=== PATIENT | male | born 1955 | race Caucasian/White ===

== ENCOUNTER 2021-05-17 06:11 | Outpatient (REF) | payer MEDICARE, BC, SELFPAY ==
[2021-05-17 07:16] LABS: Estimated Average Glucose 114 mg/dL; Hemoglobin A1c % 5.6 %
== END 2021-05-17 06:12 | disposition home or self-care (01) ==
LOC: HO.LAB 06:11
PROVIDERS: PCP Internal Medicine; Visit Provider Physician Assistant
DX: R73.01 Impaired fasting glucose (principal)
CPT/HCPCS: 36415; 83036

== ENCOUNTER 2022-03-29 06:22 | Outpatient (REF) | payer BC, MEDICARE, SELFPAY ==
[2022-03-29 08:06] LABS: TSH reflex Free T4 2.13 uIU/mL (0.32-4.0)
[2022-04-02 16:56] LABS: Testosterone, Free 85.5 pg/mL (35.0-155.0); Testosterone, Total 757 ng/dL (250-1100)
== END 2022-03-29 06:23 | disposition home or self-care (01) ==
LOC: HO.LAB 06:22
PROVIDERS: PCP Internal Medicine; Visit Provider Physician Assistant
DX: E03.8 Other specified hypothyroidism (principal); N52.8 Other male erectile dysfunction
CPT/HCPCS: 36415; 84402; 84403; 84443

== ENCOUNTER 2022-10-19 06:04 | Outpatient (REF) | payer BC, MEDICARE, SELFPAY ==
[2022-10-19 06:10] LABS: MANUAL DIFF FLAG NO
[2022-10-19 07:43] LABS: Basophils Absolute Auto 0.1 X10*3/uL (0.0-0.2); Basophils Percent Auto 0.7 % (0-2); Eosinophils Absolute Auto 0.3 X10*3/uL (0.0-0.4); Eosinophils Percent Auto 3.4 % (0-4); Hematocrit 42.4 % (42.0-52.0); Hemoglobin 14.4 g/dl (14.0-18.0); Imm Gran Abs Auto 0.02 X10*3/uL (0.00-0.03); Imm Gran Pct Auto 0.2 % (0.0-0.4); Lymphocytes Absolute Auto 2.1 X10*3/uL (1.2-4.9); Mean Corpuscular Hemoglobin 28.7 pg (27.0-33.0); Mean Corpuscular Volume 84.6 fL (80.0-98.0); Mean Platelet Volume 12.1 fL (9.4-12.4); Monocytes Absolute Auto 0.9 X10*3/uL (0.1-1.2); Monocytes Percent Auto 10.6 % (2-11); Neutrophils Percent Auto 60.1 % (45-73); Platelet Count 179 X10*3/uL (160-400); Red Blood Count 5.01 X10*6/uL (4.60-5.80); Red Cell Distribution Width 15.6 % (11.0-16.0); White Blood Count 8.3 X10*3/uL (4.8-10.8)
[2022-10-19 08:36] LABS: Alanine Aminotransferase 14 U/L (0-40); Alkaline Phosphatase 85 U/L (39-117); Anion Gap 13 (12-20); Aspartate Amino Transferase 20 U/L (5-37); Bilirubin Total 0.4 mg/dL (0.0-1.0); Blood Urea Nitrogen 18 mg/dL (9-16); Carbon Dioxide 25 mmol/L (22-29); Chloride 106 mmol/L (96-108); Cholesterol 148 mg/dL; Estimated Glomerular Filt Rate > 60; Glucose Random 92 mg/dL (60-115); HDL Cholesterol 59 mg/dL; LDL Cholesterol Calculated 76 mg/dl; Potassium 4.2 mmol/L (3.3-5.1); Sodium 140 mmol/L (135-145); Thyroid Stimulating Hormone 2.24 uIU/mL (0.32-4.0); Total Protein 6.4 g/dL (6.5-8.0); Triglycerides 65 mg/dL
== END 2022-10-19 06:05 | disposition home or self-care (01) ==
LOC: HO.LAB 06:04
PROVIDERS: PCP Internal Medicine; Visit Provider Physician Assistant
DX: E78.2 Mixed hyperlipidemia (principal); E03.8 Other specified hypothyroidism
CPT/HCPCS: 36415; 80053; 80061; 84443; 85025

== ENCOUNTER 2025-03-10 06:08 | Outpatient (REF) | payer BC, MEDICARE, SELFPAY ==
--- OUTSIDE RECORDS SUMMARY | 2025-03-10 06:12 | XMS_ITS | Data Portability ---
Author Organization [facility] Address [address] [place] [address] Assessment Encounter Date Assessment Date Assessment LastModified by Organization Details LastModified Time 10/10/2022 10/10/2022 The patient denies recent falls or recurrent falls. Denies instability, weakness, abnormal gait, or difficulties with movement. The patient wears correct, supportive shoes and is not otherwise severely visually impaired. The patient is full weight bearing and if using the assistance of a cane or walker feels supported and stable with the use of such devices. All medical conditions have been taken into account that may pose a risk for the patient for falls. Home aida, carpets and/or rugs do not pose a challenge for the patient. The patient has been educated about the use of vitamin D supplementation for bone health and prevention of hypotensive episodes that may increase risk for fall. All question and concerns were answered to the patient's satisfaction. [email or web address] Not available 10/10/2022 09:52:15 03/24/2023 03/24/2023 The patient denies recent falls or recurrent falls. Denies instability, weakness, abnormal gait, or difficulties with movement. The patient wears correct, supportive shoes and is not otherwise severely visually impaired. The patient is full weight bearing and if using the assistance of a cane or walker feels supported and stable with the use of such devices. All medical conditions have been taken into account that may pose a risk for the patient for falls. Home aida, carpets and/or rugs do not pose a challenge for the patient. The patient has been educated about the use of vitamin D supplementation for bone health and prevention of hypotensive episodes that may increase risk for fall. All question and concerns were answered to the patient's satisfaction. [email or web address] Not available 03/24/2023 10:33:21 Plan of Treatment Reminders Order Date Submit Date Provider Last Modified By Organization Details Last Modified Time Details Appointments None recorded. Lab lipid panel, serum 2024 [facility], [address] [place] [address], [id number], 5 16:20:25 hemoglobin A1c, QN, blood 2024 [facility], [address] [place] [address], [id number], 5 16:20:25 TSH + free T4, serum 2024 [facility], [address] [place] [address], [id number], 5 15:54:55 CMP, serum or plasma 2024 [facility], [address] [place] [address], [address], 5 15:54:55 CBC w/ auto diff 2024 [facility], [address] [place] [address], [address], 5 15:54:55 lipid panel, blood 2021 [facility], [address] [place] [address], [address], 10:00:55 CMP, serum or plasma 2021 [facility], [address] [place] [address], [address], 2 14:08:16 CBC w/ auto diff 2021 [facility], [address] [place] [address], [place], [address], 2 10:00:55 TSH + free T4, serum 2021 022 [facility], [address] [facility], [place], [address], 2 10:00:55 Referral None recorded. Procedures None recorded. Surgeries None recorded. Imaging US, echocardio gram 2024 025 [facility], [address], [place], [address], 5 16:18:53 XR, chest, 2 view - checking for resolution of pneumonia 2023 024 KEELEY Not available 4 08:05:10 XR, chest, 2 view 2023 024 KEELEY Not available 4 16:19:46 US, echocardio gram 2023 024 [email or web address] Not available 4 08:27:32 Medication Orders tadalafil 20 mg tablet 2024 025 [facility], [address] [place], [address], 5 15:53:32 furosemide 20 mg tablet 2023 024 [facility], [address] [place], [address], 4 14:45:33 tadalafil 20 mg tablet 2023 024 [facility], [address] [place], [address], 4 14:15:36 levothyrox ine 175 mcg tablet 2022 023 [email or web address] [facility], [address] [place] [address], [address], [id number], 4 14:16:53 tadalafil 20 mg tablet 2022 023 [facility], [address] [place], [address], 3 10:33:26 lisinopril 30 mg tablet 2022 023 [place] [facility], [address], [facility] [address], [place], [place], [id number], 10:33:26 Patient TargetsNo targets recorded. Patient Instructions Encounter Date Encounter Id Patient Instructions Last Modified By Organization Details Last Modified Time 03/24/2023 [id number] smoking cessatio n counseling, greater than 3 minutes up to 10 minutes* [email or web address] Not available 03/24/2023 10:50:04 COPD exacerbatio n plan: care instructions [email or web address] Not available 03/24/2023 10:49:07 Reason for Referral None Reported. Results Created Date Observation Date Name Description Value Unit Range Abnormal Flag Note LastModifiedBy Organization Detail LastModifiedTime 03/31/2003/31/2023 XR, chest , 2 view No observ ation record ed. [facility] [address] [facility] [address], [place], [address], 04/01/2023 08:50:44 07/11/20 24 07/11/2024 XR, chest , 2 view No observ ation record ed. [email or web address] [place] [address], [address], 07/12/2024 08:53:30 09/10/20 24 09/10/2024 XR, chest , 2 view No observ ation record ed. [address], [address], 03/07/2025 16:00:29 09/19/20 24 09/19/2024 XR, chest , 2 view No observ ation record ed. [email or web address] (Scheduling Dept) [address] [facility], [place], [address], 03/07/2025 16:00:29 Result Notes None recorded. Problems Name Problem SNOMED Code Status Onset Date Resolution Date Notes Provider Name and Address Organization Details Recorded Time Tobacco user 577952442 Active 2018 JORGE Persaud [address] [place], [address], [facility] 9 15:53:06 Primary erectile dysfunct ion 737088407 Active 2021 KESHAV FRAZIER [address] [place], [address], [facility] 2 14:14:09 Mild recurren t major depressi on 13729321 Active 2021 KESHAV FRAZIER [address] [place], [address], [facility] 2 14:15:42 Erectile dysfunct ion 676160624 Active 2021 KESHAV FRAZIER [address] [place], [address], [facility] 2 13:41:43 Dyspnea 176525157 Active 2021 KESHAV FRAZIER [address] [place], [address], [facility] 2 16:08:33 Asthma 051136655 Active 2021 KESHAV FRAZIER [address] [place], [address], [facility] 2 10:31:07 Bilatera l pleural effusion 413686370 Active 2021 KESHAV FRAZIER [address] [place], [address], [facility] 2 11:33:55 Lesion of lung 553086061 Active 2021 KESHAV FRAZIER [address] [place], [address], [facility] 2 11:34:34 Edema of lower extremit y 830758660 Active 2021 KESHAV FRAZIER [address] [place], [address], [facility] 2 09:55:22 Hyperthy roidism 80343716 Active 2022 KESHAV FRAZIER [address] [place] [address], [address], [facility] 3 10:32:02 Cough 37713945 Active 2022 Esteban Graff DO [address] [place] [address], [address], [facility] 3 10:02:03 Hypothyr oidism 53937754 Active 2017 Suly banks [facility] 8 14:47:09 Gastroes ophageal reflux disease 807368796 [facility] 14:47:16 Chronic obstruct ida pulmonar y disease 70857042 Active 2017 Emphysema /bronchit is? vs ILD (baseline spo2 96% Suly banks [facility] 8 14:48:16 Hypercho lesterol emia 64761070 Active 2017 Suly banks [facility] 8 14:48:32 Acute systolic heart failure 339096145 Active 2023 KESHAV FRAZIER [address] [place] [address], [address], [facility] 4 10:13:41 Depressi ve disorder 17787603 Active 2023 KESHAV FRAZIER [address] [place] [address], [address], [facility] 4 14:18:39 Congesti ve heart failure 35681602 Active 2023 KESHAV FRAZIER [address] [place], [address], [facility] 4 14:26:57 Pneumoni a 381051963 Active 2023 KESHAV FRAZIER [address] [place], [address], [facility] 4 11:08:42 Pleural effusion associat ed with pulmonar y infectio n 83865964 Active 2023 KESHAV FRAZIER [address] [place] [address], [address], [facility] 4 09:18:36 Tobacco dependen ce syndrome 63809090 Active 2023 KESHAV FRAZIER [address] [place] [address], [address], [facility] 4 09:19:20 Mixed hyperlip idemia 938960766 Active 2024 KESHAV FRAZIER [address] [place] [address], [address], [facility] 5 15:59:18 Aortic valve stenosis 09191989 Active 2017 mild-mode rate per TTE 02/2018 HungBEVERLY robertsTRESA [address] [place] [address], [address], [facility] 8 16:08:44 Aortic valve regurgit ation 65080727 Active 2017 mild to moderate per TTE 02/21 HungBEVERLY robertsTRESA [address] [place] [address], [address], [facility] 8 16:08:37 Mitral valve regurgit ation 87740234 Active 2017 mild per echo 02/2018 BEVERLY PersaudTRESA [address] [place] [address], [address], [facility] 8 16:08:24 Pulmonar y hyperten tiffany 21346987 Active 2017 mild per TTE 02/2018 Hung, [facility] [address] [place], [address], [facility] 8 16:30:59 Emir l hyperten tiffany 75768872 Active 2017 BEVERLY Persaud [address] [place], [address], [facility] 8 15:45:00 Problem Notes None recorded. Procedures Surgical History Date Name Laterality Status Provider Name and Address Organization Details Recorded Time 2 Vasectomy completed KESHAV FRAZIER [address] [place], [address], [facility] 03/24/2023 10:45:30 Imaging Results Imaging Date Name Status LastModified by Organiz ation Details LastModified Time 03/31/2023 XR, chest, 2 view completed [facility] [address] [facility] [address], [place], [address], 04/01/2023 08:50:44 07/11/2024 XR, chest, 2 view completed [email or web address], [address], 07/12/2024 08:53:30 09/10/2024 XR, chest, 2 view completed [address], [address], 03/07/2025 16:00:29 09/19/2024 XR, chest, 2 view completed [facility] (Scheduling Dept) [address] [place] [address], [address], 03/07/2025 16:00:29 Procedure Notes None recorded. Medical Equipment None Reported. Allergies No known drug allergies Medications Name Sig Start Date Stop Date Status Note LastModified by Organization Details LastModified Time cyclobenzap rine 10 mg tablet 02/13 completed Not Available Not Available Not Available latanoprost 0.005 % eye drops INSTILL 1 DROP INTO LEFT EYE DAILY AT BEDTIME active Not Available Not Available No t Available levothyroxi ne 175 mcg tablet takes 1 tab monday, monday, monday , and is when he takes it does not take it monday, monday, monday active Not Available Not Available No t Available atorvastati n 80 mg tablet TAKE 1 TABLET BY MOUTH ONCE DAILY active Not Available Not Available No t Available albuterol sulfate 2.5 mg/3 mL (0.083 %) solution for nebulizatio n INHALE 3 ML VIA NEBULIZER THREE TIMES A DAY NEEDED active Not Available Not Available No t Available ibuprofen 800 mg tablet Take 1 tablet 3 times a day by oral route for 30 days. 10/08 completed Not Available Not Available Not Available nicotine (polacrilex ) [address] 1 EACH INSIDE CHEEK EVERY 2 HOURS NEEDED FOR SMOKING CESSATION active Not Available Not Available No t Available lisinopril 20 mg tablet 02/13 completed Not Available Not Available Not Available prednisone 20 mg tablet TAKE ONE TABLET BY MOUTH EVERY MORNING FOR 14 DAYS 09/10 completed Not Available Not Available Not Available sulfamethox azole 800 mg-trimetho prim 160 mg tablet 11/12 completed Not Available Not Available Not Available aspirin 81 mg tablet,silvia yed release TAKE ONE TABLET BY MOUTH EVERY DAY active Not Available Not Available No t Available spironolact one 25 mg tablet TAKE ONE TABLET BY MOUTH EVERY DAY active Not Available Not Available No t Available ketorolac 0.5 % eye drops INSTILL 1 DROP INTO THE LEFT EYE 3 TIMES A DAY 03/07 completed Not Available Not Available Not Available prednisolon e acetate 1 % eye drops,suspe nsion INSTILL 1 DROP INTO LEFT EYE FOUR TIMES A DAY. SHAKE BOTTLE WELL TAPER DIRECTED active Not Available Not Available No t Available cephalexin 500 mg capsule TAKE ONE CAPSULE BY MOUTH EVERY 6 HOURS FOR 10 DAYS 03/07 completed Not Available Not Available Not Available nicotine 21 mg/24 hr daily transdermal patch APPLY ONE PATCH TO THE SKIN EVERY DAY active Not Available Not Available No t Available fluoxetine 10 mg capsule TAKE ONE CAPSULE BY MOUTH EVERY DAY 04/19 completed Not Available Not Available Not Available diclofenac potassium 50 mg tablet 02/13 completed Not Available Not Available Not Available lisinopril 30 mg tablet TAKE 1 TABLET BY MOUTH DAILY active Not Available Not Available No t Available omeprazole 20 mg capsule,del ayed release TAKE 1 CAPSULE BY MOUTH DAILY active Not Available Not Available No t Available cephalexin 500 mg tablet Take 1 tablet every 6 hours by oral route for 10 days. 03/07 completed Not Available Not Available Not Available furosemide 20 mg tablet TAKE ONE TABLET BY MOUTH EVERY DAY active Not Available Not Available No t Available levofloxaci n 750 mg tablet TAKE ONE TABLET BY MOUTH EVERY DAY FOR 10 DAYS active Not Available Not Available No t Available albuterol sulfate HFA 90 mcg/actuati on aerosol inhaler Inhale 2 puffs every 4 hours by inhalatio n route as needed for 90 days. active Not Available Not Available No t Available tadalafil 20 mg tablet TAKE ONE TABLET BY MOUTH EVERY DAY FOR 10 DAYS 2024 active Not Available Not Available Not Avai lable Spiriva with HandiHaler 18 mcg and inhalation capsules INHALE 2 INHALATIO NS FROM THE CONTENTS OF 1 CAPSULE BY MOUTH VIA INHALATIO N DEVICE ONCE DAILY 2024 active Not Available Not Available Not Avai lable albuterol sulfate concentrate 2.5 mg/0.5 mL solution for nebulizatio n INHALE ONE AMPULE 2.5MG) VIA NEBULIZER EVERY 6 HOURS NEEDED FOR WHEEZING active Not Available Not Available No t Available Zyrtec-D prn active Not Available Not Avai lable Not Available Bufferin 325 mg tablet Take 1 tablet every day by oral route. 04/16 completed Not Available Not Available Not Available Chantix Starting Month Box 0.5 mg (11)-1 mg (42) tablets in dose pack 02/13 completed Not Available Not Available Not Available Combivent Respimat 20 mcg-100 mcg/actuati on solution for inhalation USE 1 INHALATIO N BY MOUTH 6 TIMES DAILY active Not Available Not Available No t Available Prolensa 0.07 % eye drops INSTILL ONE DROP IN THE LEFT EYE ONCE DAILY active Not Available Not Available No t Available guaifenesin ER 600 mg tablet, extended release 12 hr TAKE TWO TABLETS BY MOUTH TWICE A DAY FOR 7 DAYS 03/07 completed Not Available Not Available Not Available Rhopressa 0.02 % eye drops PUT 1 DROP INTO LEFT EYE EVERY DAY AT BEDTIME active Not Available Not Available No t Available Vitals Date Recorded Body height Body mass index (BMI) Body weight Heart rate Oxygen saturation Oxygen saturation in Arterial blood by Pulse oximetry Systolic blood pressure Diastolic blood pressure Provider Name and Address Organization Details Last Updated DateTime 2 165.74 cm 27.7 kg/m2 81821.8 g 60 /min 97 % 97 % 122 mm[Hg] 60 mm[Hg] KESHAV FRAZIER [address] [place], [address] 2 09:34:46 Date Recorded Body height Body mass index (BMI) Body weight Heart rate Oxygen saturation Oxygen saturation in Arterial blood by Pulse oximetry Systolic blood pressure Diastolic blood pressure Provider Name and Address Organization Details Last Updated DateTime 3 165.74 cm 28.5 kg/m2 92347.9 7 g 65 /min 97 % 97 % 140 mm[Hg] 60 mm[Hg] KESHAV FRAZIER [address] [place], [address] 3 10:22:51 Date Recorded Body weight Heart rate Oxygen saturation Oxygen saturation in Arterial blood by Pulse oximetry Systolic blood pressure Diastolic blood pressure Provider Name and Address Organization Details Last Updated DateTime 4 31193.6 7 g 80 /min 95 % 95 % 130 mm[Hg] 72 mm[Hg] Ada Mcdaniel [facility] 4 14:00:13 Date Recorded Body height Body mass index (BMI) Body weight Heart rate Oxygen saturation Oxygen saturation in Arterial blood by Pulse oximetry Systolic blood pressure Diastolic blood pressure Provider Name and Address Organization Details Last Updated DateTime 4 165.1 cm 32.8 kg/m2 17879.7 g 77 /min 94 % 94 % 158 mm[Hg] 68 mm[Hg] Lizzy Phan [facility] 4 14:36:03 Date Recorded Body height Body weight Body mass index (BMI) Heart rate Oxygen saturation Oxygen saturation in Arterial blood by Pulse oximetry Systolic blood pressure Diastolic blood pressure Provider Name and Address Organization Details Last Updated DateTime 5 165.1 cm 76296.9 3 g 29.5 kg/m2 65 /min 94 % 94 % 116 mm[Hg] 64 mm[Hg] Ada Mcdaniel [facility] 15:34:23 Social History Question Answer Notes LastModified by Organizat ion Details LastModified Time Tobacco Smoking Status Former Smoker Lizzy banks [facility] 09/10/2024 14:33:16 Do You Have An Advance Directive? No Information not available 03/24/2023 What Is Your Level Of Alcohol Consumption? Heavy Information not available 03/24/2023 Are You Blind Or Do You Have Difficulty Seeing? No Information not available 03/24/2023 What Is Your Level Of Caffeine Consumption? Occasional Information not available 03/24/2023 In The 14 Days Before Symptom Onset, Have You Had Close Contact With A Laboratory-confir med COVID-19 While That Case Was Ill? No Information not available 03/24/2023 In The 14 Days Before Symptom Onset, Have You Had Close Contact With A Person Who Is Under Investigation For COVID-19 While That Person Was Ill? No Information not available 03/24/2023 Have You Been To An Area Known To Be High Risk For COVID-19? No Information not available 03/24/2023 Are You Currently Employed? No Information not available 03/24/2023 Are You Deaf Or Do You Have Serious Difficulty Hearing? No Information not available 03/24/2023 What Type Of Diet Are You Following? REGULAR Information not available 03/24/2023 What Is The Highest Grade Or Level Of School You Have Completed Or The Highest Degree You Have Received? [id number] Information not available 03/24/2023 How Many Days Of Moderate To Strenuous Exercise, Like A Brisk Walk, Did You Do In The Last 7 Days? 3 Information not available 03/24/2023 On Those Days That You Engage In Moderate To Strenuous Exercise, How Many Minutes, On Average, Do You Exercise? 3 Information not available 03/24/2023 Are There Any Guns Present In Your Home? Yes Information not available 03/24/2023 What Was The Date Of Your Most Recent Tobacco Screening? 03/07/2025 [email or web address] Information not available 03/07/2025 Do You Use Your Seat Belt Or Car Seat Routinely? Yes Information not available 03/24/2023 Are You Sexually Active? Yes Information not available 03/24/2023 Do You Have Smoke And Carbon Monoxide Detectors In Your Home? No Information not available 03/24/2023 At What Age Did You Start Smoking Tobacco? 17 Information not available 03/24/2023 Are You Passively Exposed To Smoke? Yes Information no t available 03/24/2023 How Much Tobacco Do You Smoke? No [email or web address] Information not available 09/10/2024 Do You Feel Stressed (tense, Restless, Nervous, Or Anxious, Or Unable To Sleep At Night)? [id number] Information not available 03/24/2023 Do You Use Any Illicit Or Recreational Drugs? No Information not available 03/24/2023 Do You Use Sunscreen Routinely? No Information not available 03/24/2023 How Many Years Have You Smoked Tobacco? 50 [id number] Information not available 09/08/2020 Do You Or Have You Ever Used Any Other Forms Of Tobacco Or Nicotine? No [email or web address] Information not available 03/24/2023 Sex: Male Functional Status Question Answer Note LastModified by Organizat ion Details LastModified Time Do you have difficulty walking or climbing stairs? No Information not available 03/24/2023 Are you able to walk? YESWOREST Information not available 03/24/2023 Do you have difficulty doing errands alone? No Information not available 03/24/2023 Are you able to care for yourself? Yes Information not available 03/24/2023 Do you have difficulty dressing or bathing? No Information not available 03/24/2023 What is your exercise level? Occasional Information not available 03/24/2023 Mental Status Question Answer Note LastModified by Organization D etails LastModified Time Do you have difficulty concentrating, remembering or making decisions? No Information no t available 03/24/2023 Family History Relationship Description Onset Age of this Age Resolved Age Notes LastModified by Organization Details LastModified Time Father No current problems or disability [email or web address] Not available 03/24 10:45:16 Mother No current problems or disability [email or web address] Not available 03/24 10:45:16 Medical History Condition Response Coronary Artery Disease N Gout N Other N Kidney Stones N Blood Diseases N Blood Transfusion N Breast Cancer N Lung Disease N Depression N COPD N Defects or Inherited Disease N Anxiety Disorder N Muscle, Joint, or Bone Problems N Obesity N Vision or Eye Problems N Arthritis N Infertility N Polyps N Mental Disorder N Cancer N Stroke N Varicosities N Endometriosis N Bladder or Kidney Problems N High Cholesterol N Liver Disease N Fibromyalgia N Headaches N Kidney Disease N Allergies/Hayfever N Heart Problems N Hospitalizations N Thyroid Problems N GI Problems N Eating Disorder N Skin Problems N Anemia N MRSA exposure N Constipation N Mental Illness N Diabetes N Ovarian Cancer N Seizures/Epilepsy N Tuberculosis N Congestive Heart Failure (CHF) N Eczema N Abuse/Domestic Violence N Diverticulitis N Asthma N Reflux/GERD N Hepatitis N Heart Disease N Pulmonary Embolism N Hypertension N Chicken Pox N Autism Spectrum Disorder (ASD) N Osteoporosis N Immunizations Vaccine Type Date Status Note Provider Nam e and Address Organization Details Recorded Time Td (adult) [address] [facility] 05/05/2021 09:01:03 Influenza, split virus, quadrivalent, preservative 8 completed [address] M [address] [facility] 03/24/2023 10:04:38 zoster live 6 completed February [address], [address] 09/12/2018 15:44:35 COVID-19 vaccine, vector-nr, rS-Ad26, PF, 0.5 mL 1 [address] [facility] 03/24/2023 10:04:38 COVID-19 vaccine, vector-nr, rS-Ad26, PF, 0.5 mL 1 [address] M [address] [facility] 03/24/2023 10:04:38 Past Encounters Encounter ID Performer Location Encounter Start Date Encounter Closed Date Diagnosis/Indication Diagnosis SNOMED-CT Code Diagnosis ICD10 Code Diagnosis Note [id number] Esteban Graff DO [facility] [address] [facility] [address] [address] 02/13/2018 09:56:48 02/13/2018 11:44:45 Chronic obstructive pulmonary disease 01606859 J44.9 has continued to abstain from tobacco Near syncope [id number] R 55 discussed echo and carotid echo had some mild - moderate changes carotid u/s was unremarkab le Essential hypertension 91213046 I10 Gastroesop hageal reflux disease 903825191 K21.9 very well controlled with omeprazole 1947 Esteban Graff DO [facility] [address] [facility],[place] [facility] [place] [address] 03/13/2018 15:21:52 03/13/2018 16:19:19 Essential hypertension 65928720 I10 stable since starting lisinopril - no adr. will recheck in 6 months. asa went to wrong pharmacy - [facility] Chronic ob structive pulmonary disease 44882522 J44.9 has continued to abstain from tobacco Near syncope 041765619 R 55 he had gone to ED for this and there was nothing found except high blood pressure. he has since been started on lisinopril . since then he's not had any sx similar to what brought him to the ED. he is currently hooked up to 30 day monitor, no sx since he started echo with mild-moder ate valve disease. will repeat echo next year we will f/u after 30 day is complete if there are any abnormalit ies on report otherwise he will f/u here if he develops any sx. it appears that since BP has been controlled he is no longer having sx. It seems likely that the uncontroll ed BP may have been causing sx of LH/near syncope. we will f/u on his chronic issues in 6 months, but if there is new or returning sx he will f/u sooner. Gastroesop hageal reflux disease 542424962 K21.9 very well controlled with omeprazole [id number] Esteban Graff DO [facility] [address] [facility],[place] [address] 04/16/2018 15:28:09 04/16/2018 16:51:54 Essential hypertension 88045144 I10 stable since starting lisinopril - no adr. will recheck in 6 months. needs to work on diet will give heart healthy diet handout Hypercholesterolemia 136 84875 E78.00 recommend following mediterran jonathan diet Gastroesop hageal reflux disease 654707201 K21.9 very well controlled with omeprazole Chronic ob structive pulmonary disease 74854757 J44.9 has continued to abstain from tobacco breathing comfortabl y taking spiriva and combivent if needed Hypothyroidism 08647308 E03.9 [id number] Esteban Graff [facility] [address] [facility], ite [facility] [place] [address] 09/12/2018 15:18:47 09/12/2018 16:04:01 Essential hypertension 00131748 I10 well controlled Hypercholesterolemia 136 10789 E78.00 recommend following mediterran jonathan diet will get recheck lipids Gastroesop hageal reflux disease 273177582 K21.9 very well controlled with omeprazole Chronic ob structive pulmonary disease 81436624 J44.9 has continued to abstain from tobacco - awesome breathing comfortabl y taking spiriva and combivent if needed Hypothyroidism 67118332 E03.9 Body mass index 30+ - obesity 189929760 Z68.32 Screening procedure 2013 5006 Z13.9 Active or passive immunization 607584096 Z23 had free flu shot at work will do both pna vaccines at 65 will consider new shingles at 65, already has zoster due for tetanus vaccine Adult heal th examination 011237199 Z00.00 Screening for malignant neoplasm of prostate 678076217 Z12.5 [id number] Esteban Graff [facility] [address] [facility], [place] [address] 11/12/2018 14:29:40 11/13/2018 08:17:54 Dysphagia 23592152 R13.10 Chronic ob structive pulmonary disease 86629544 J44.9 [id number] Esteban Graff [facility] [address] [facility], [place] [address] 11/23/2018 15:23:31 11/27/2018 11:16:25 Hypercholesterolemia 47661491 E78.00 Hypothyroidism 25386868 E03.9 Essential hypertension 33240990 I10 Dysphagia 35787944 R13.1 0 Abnormal UGI series, will need endoscopy [id number] Esteban Graff DO [facility] [address] [place] [address] 04/10/2019 15:23:33 04/10/2019 16:03:15 Chronic obstructive pulmonary disease 86433345 J44.9 has continued to abstain from tobacco - awesome breathing comfortabl y taking spiriva and combivent if needed Hypercholesterolemia 136 30307 E78.00 recommend following mediterran jonathan diet will get recheck lipids Hypothyroidism 30725256 E03.9 Essential hypertension 14607570 I10 well controlled Dysphagia 62699384 R13.1 0 resolved Tobacco user 612983332 Z 72.0 very rare cigarettes advised of course to quit completely but this is much better than previously Pain in left thumb 40328 00366 780475 M79.645 diminished sensation of the base of the left thumb sharp stabbing pain with pressure consider hand specialist if no relief with nsaids [id number] Esteban Graff DO [facility] [address] [facility],[place] [address] 10/08/2019 15:16:46 10/08/2019 15:58:04 Essential hypertension 74193236 I10 well controlled Chronic ob structive pulmonary disease 23830070 J44.9 has restarted smoking breathing comfortabl y taking spiriva and combivent if needed Gastroesop hageal reflux disease 733689397 K21.9 very well controlled with omeprazole Hypothyroidism 14766130 E03.9 Hypercholesterolemia 136 49424 E78.00 recommend following mediterran jonathan diet will get recheck lipids Pulmonary hypertension 59534305 I27.20 per TTE, repeat 02/2018 Mitral gladys ve regurgitation 62205207 I34.0 per TTE, repeat 02/2018 Aortic valve stenosis 60 838764 I35.0 per TTE, repeat 02/2018 Aortic gladys ve regurgitation 26857306 I35.1 per TTE, repeat 02/2018 Leukocytosis 179161077 D 72.829 Tobacco user 312032688 Z 72.0 very rare cigarettes advised of course to quit completely but this is much better than previously [id number] Esteban Graff DO [facility] [address] [facility],[place] [address] 04/13/2020 15:49:47 04/13/2020 16:47:00 Chronic obstructive pulmonary disease 33576279 J44.9 does well without mask on work allows him to take it off and breathe when he needs to otherwise doing well 94% > today, is wearing mask which might be the reason why Essential hypertension 08505946 I10 will rechk BP at home without mask on and report to us with numbers Hypothyroidism 18575421 E03.9 will have his TSH checked > has the orders just was waiting for COVCOLEEN to pass medication > takes meds monday, monday, monday, and is when he takes it does not take it monday, monday, monday per endo [id number] Esteban Graff [facility] [address] [facility],[place] [address] 12/09/2020 09:42:19 12/09/2020 11:28:51 Pre-surgery evaluation 144010176 Z01.818 based on history and physical, the patient is high risk for mild to moderate risk procedure, all current medical conditions are stable with no interventi on needed at this time, the patient is cleared for surgery Essential hypertension 42058940 I10 BP was fine today in office, has been fine at home as well, no interventi on needed, appropriat e for surgery Chronic ob structive pulmonary disease 25102802 J44.9 does well without mask on work allows him to take it off and breathe when he needs to otherwise doing well 97% > today which is excellent [id number] Esteban Graff [facility] [address] [facility],[place] [facility] [place] [address] 03/17/2021 11:42:31 03/17/2021 14:27:02 Pre-surgery evaluation 966154337 Z01.818 The patient was seen in the office today for pre-op evaluation . All medical conditions on patient's problem list were addressed and are currently stable, no interventi on needed at this time. Based on history and physical performed, the patient is cleared for surgery. Essential hypertension 24949139 I10 BP was excellent today in office, has been fine at home as well, no interventi on needed, appropriat e for surgery Chronic ob structive pulmonary disease 66799032 J44.9 96% [place] [id number] Esteban Graff [facility] [address] [facility] [address],[place] [address] 05/14/2021 09:33:53 05/14/2021 15:25:44 Chronic obstructive pulmonary disease 40116757 J44.9 99% on RA Pulmonary hypertension 57028775 I27.20 stable Essential hypertension 88298441 I10 BP was fine today in office, has been fine at home as well, no interventi on needed Impaired f asting glycemia 937005199 R73.01 will check for diabetes as his eye dr believes why his vision is darker Gastroesop hageal reflux disease 241271046 K21.9 needs refill [id number] Esteban Graff DO [facility] [address] [facility],[place] [address] 03/22/2022 13:45:37 03/22/2022 15:07:39 Hypothyroidism 93427947 E03.8 will have his TSH checked > has the orders just was waiting for COVID to pass medication > takes meds monday, monday, monday, and is when he takes it does not take it monday, monday, monday per endo Primary er ectile dysfunction 143250071 N52.8 will fu with T level to see if contributi ng to his ED Mild recur rent major depression 35701794 F33.0 will fu with fluoxetine 10 mg to start and f/u [id number] Esteban Graff DO [facility] [address] [facility] [address],[place] [address] 04/19/2022 13:21:41 04/20/2022 08:42:36 Chronic obstructive pulmonary disease 53477459 J41.0 99% on RA Essential hypertension 01795201 I10 BP was fine today in office, has been fine at home as well, no interventi on needed Erectile dysfunction 860 719094 F52.21 will trial tadalafil 48734 KESHAV FRAZIER [facility] [address] [facility] [address],[place] [address] 10/10/2022 09:17:41 10/10/2022 10:06:49 Chronic obstructive pulmonary disease 42993316 J41.0 99% on RA Asthma 656958288 J45.20 stable Hypercholesterolemia 136 09040 E78.2 will recheck lab work Gastroesop hageal reflux disease 012154592 K21.9 needs refill Pulmonary hypertension 87226173 I27.0 stable Advance care planning 71 3891406 Z71.89 Active or passive immunization 471463484 Z23 patient advised he is due for flu shot, pneu & shingles Hypothyroidism 28951864 E03.8 medication > takes meds monday, monday, monday, and is when he takes it does not take it monday, monday, monday per endo [id number] Esteban Graff DO [facility] [address] [facility], [facility] [place] [address] 03/24/2023 10:03:50 03/24/2023 11:24:43 Hypercholesterolemia 14216046 E78.2 will recheck lab work Chronic ob structive pulmonary disease 41620450 J41.0 99% on RA Gastroesop hageal reflux disease 011145997 K21.9 needs refill Hypothyroidism 68025536 E03.8 medication > takes meds monday, monday, monday, and is when he takes it does not take it monday, monday, monday per endostable with recent check Essential hypertension 96106558 I10 BP was fine today in office, has been fine at home as well, no interventi on needed Erectile dysfunction 860 241860 F52.21 will trial tadalafil Hyperthyroidism 80600897 E05.80 stable with last recheck Mild recur rent major depression 23481899 F33.0 will f/u with fluoxetine 10 mg to start and f/u Pulmonary hypertension 91971682 I27.0 stable Smokes tobacco daily 449 528565 Z72.0 discussed smokingno plans to quit [id number] Esteban Graff [facility] [address] [facility], [employer] [place] [address] 07/10/2024 13:49:23 07/10/2024 15:42:10 Erectile dysfunction 256395694 F52.21 will trial tadalafil Depressive disorder 3548 9007 F33.0 negative Pulmonary hypertension 23778512 I27.0 needs repeat US echo Chronic ob structive pulmonary disease 16016164 J41.1 95% on RAbreathin g is good today in office Congestive heart failure 37809679 I50.21 recheck in a few months [id number] Esteban Graff [facility] [address] [facility],[place] [facility] [place] [address] 09/10/2024 14:30:46 09/10/2024 15:08:40 Pneumonia 566203582 J18.8 given CXR for recheck of his lungs Pleural ef fusion associated with pulmonary infection 11764685 J91.8 rechecking with XR Tobacco de pendence syndrome 43568269 F17.200 stable Chronic ob structive pulmonary disease 30457401 J41.1 94% on RAbreathin g is good today in office Edema of l ower extremity 250617524 R60.0 will set up with lasix again for both the pneumonia and the fluid in his lungs and his legsup about 5 pounds from d/c due to water no chest pain Congestive heart failure 62279843 I50.21 recheck in a few months [id number] Esteban Graff [facility] [address] [facility],[place] [facility] [place] [address] 03/07/2025 15:26:36 03/07/2025 16:18:53 Aortic valve stenosis 33461520 I35.0 stable Asthma 029054525 J45.20 stable Chronic ob structive pulmonary disease 59731920 J41.1 94% on RAbreathin g is good today in office Congestive heart failure 35184290 I50.21 stable Depressive disorder 3548 9007 F33.0 negative Hyperthyroidism 54613646 E05.80 needs f/u blood work Hypothyroidism 31930776 E03.8 medication > takes meds monday, monday, monday, and is when he takes it does not take it monday, monday, monday per endostable with recent check Erectile dysfunction 860 499110 F52.21 will trial tadalafil Pulmonary hypertension 50741366 I27.0 needs repeat US echo Mixed hyperlipidemia 267 676038 E78.2 will recheck lab work Health Concerns Section Related Observation LastModified by Organization Detai ls LastModified Time None Recorded Concern Status LastModified by Organization Details LastModified Time None Recorded Advance Directives Directive N: Payers Encounter Date Sequence Insurance Name Policy Number Policy Stiles Covered Member ID Stiles Member ID Guarantor Name 10/10/2022 1 [place] [employer] [place] [id number] Silvino Lito [id number] BF [id number] Silvino Lito 03/24/2023 1 [place] [id number] Silvino Lito [id number] BF [id number] Silvino Lito 07/10/2024 1 [place] [place] [id number] Silvino Lito [id number] BF [id number] Silvino Lito 09/10/2024 1 [place] [employer] [place] [id number] Silvino Lito [id number] BF [id number] Silvino Lito 03/07/2025 1 [place] [employer] [place] [id number] Silvino Lito [id number] BF [id number] Silvino Lito Notes Date Note Type Note Provider Name and Address Organization Details Recorded Time 2 text/html f/u HTN: today in the office the patient BP is 122/60 L arm sitting the patient is doing well on the BP medication with no side effects and no adjustment of their medications needed today at the appointment well-controlled on medication denies chest pain, sob, ankle swelling, orthopnea, palpitations asthma: stableno recent flare ups after COVID-19states he hasn't been really needing his inhalerno lingering symptoms per patient COPD: stable pulmonary HTN: stable with cardio advised about the care planning COVID-19: did have COVID-19; more severe symptoms KESHAV FRAZIER [address] [place] [address], [phone], [facility] 10/10/2022 10:01:21 3 text/html f/u medication check HLD: stable with recheck (recently done in october) COPD: stable no changesno new night time symptoms; the patient is currently using zyrtec D for congestion (seasonal) GERD: stableno changes hypothyroidism: stable with last recheck; monitored through endoinstructions for patient listed on medication and in chart ED: stable with the tadalafil (stable; works well) MDD: stablemood is appropriate; judgment good current everyday KESHAV FRAZIER [address] [place], [address], [facility] 03/24/2023 10:55:16 4 text/html ER visit the patient reports that he was at the ER for a COPD exacerbation and CHFthe patient reports that he was treated with lasix, abx and steroids, symptoms resolvedbreathing good today, no sig chest pain, and baseline cough from smoking otherwise no new symptoms, no fever, no chills has lasix at home and spironolactoneneeds recheck US echo and CXR KESHAV FRAZIER [address] [place], [address], [facility] 07/10/2024 14:30:25 4 text/html hospital f/u patient with PMH sig for COPD presented to hospital for pneumonia with parapneumonic effusionfor the next 5 days she has had worsening sob and dyspnea on exertioninhalers are not effectivedense consolidation of the R upper lob and right low lobe with R sided pleural effusion with concern for parapneumonic effusion patient had sig elevated WBC and persistant fever despite intervention prior to and during admissiondid not require supplemental oxygen though he was found to be in acute resp failure with accessory muscle use negative blood cultures started on levofloxacin and recommended f/u thoracentesis though they were not able to do so in the hospitalpt did not want to stay longer has to fu with Dr. Drummond recommended investigation on possible contributing GERD causing aspiration hospital staff recommended starting on chantixgive nicotine patches and gum as an altdeclines at this time will have pt fu with CXRgiven order start back on lasix for the edema in his LE and the effusion in his lungswith concerns of exacerbation of the CHF oxygen is 94%, around baseline for patientincreased oxygen demand, elevated BP use lasix until weight is back to baseline and swelling in legs is down has 7 days left of the levofloxacinno meds changes in the hospital KESHAV FRAZIER [address] [place], [address], [facility] 09/10/2024 14:52:26 5 text/html medication f/u aortic valve stenosis: stable, needs f.u with cardio or US echo COPD: stable per patient, baseline o2 sat asthma: stable hypothyroidism: needs lab workto recheck numbers, no major changes to his meds or dosing ED: stable on medication otherwise doing well, stable recommended f/u US echo since he doesn't follow up regularly with cardio KESHAV FRAZIER [address] [place], [address], [facility] 03/07/2025 16:01:14
--- OUTSIDE RECORDS SUMMARY | 2025-03-10 06:12 | XMS_ITS | Continuity of Care Document ---
Author Organization [facility], [facility] Address [address] [place] [address] Assessment No assessment recorded. Plan of Treatment Reminders Order Date Submit Date Provider Last Modified By Organization Details Last Modified Time Details Appointments None recorded. Lab lipid panel, serum 2024 [facility], [address] [place] [address], [address], 5 16:20:25 hemoglobin A1c, QN, blood 2024 [facility], [address] [place] [address], [address], 5 16:20:25 TSH + free T4, serum 2024 [facility], [address] [place] [address], [address], 5 15:54:55 CMP, serum or plasma 2024 [facility], [address] [place] [address], [address], 5 15:54:55 CBC w/ auto diff 2024 [facility], [address] [place] [address], [address], 5 15:54:55 Referral None recorded. Procedures None recorded. Surgeries None recorded. Imaging US, echocardio gram 2024 025 [email or web address] [facility], [address], [place], [address], 5 16:18:53 Medication Orders tadalafil 20 mg tablet 2024 025 [id number], [address] [place], [address], 5 15:53:32 Patient TargetsNo targets recorded. Patient InstructionsNo instructions recorded. Reason for Referral None Reported. Problems Name Problem SNOMED Code Status Onset Date Resolution Date Notes Provider Name and Address Organization Details Recorded Time Tobacco user 008541708 Active 2018 JORGE Persaud [address] [place] [address], [address], [facility] 9 15:53:06 Primary erectile dysfunct ion 219226572 Active 2021 KESHAV FRAZIER [address] [place] [address], [address], [facility] 2 14:14:09 Mild recurren t major depressi on 26345974 Active 2021 KESHAV FRAZIER [address] [place] [address], [address], [facility] 2 14:15:42 Erectile dysfunct ion 049458603 Active 2021 KESHAV FRAZIER [address] [place] [address], [address], [facility] 2 13:41:43 Dyspnea 492754452 Active 2021 KESHAV FRAZIER [address] [place] [address], [address], [facility] 2 16:08:33 Asthma 953975530 Active 2021 KESHAV FRAZIER [address] [place] [address], [address], [facility] 2 10:31:07 Bilatera l pleural effusion 616463659 Active 2021 KESHAV FRAZIER [address] [place], [address], [facility] 2 11:33:55 Lesion of lung 571741579 Active 2021 KESHAV FRAZIER [address] [place], [address], [facility] 2 11:34:34 Edema of lower extremit y 185794960 Active 2021 KESHAV FRAZIER [address] [place], [address], [facility] 2 09:55:22 Hyperthy roidism 17008051 Active 2022 KESHAV FRAZIER [address] [place], [address], [facility] 3 10:32:02 Cough 11885947 Active 2022 Esteban Graff, DO [address] [place], [address], [facility] 3 10:02:03 Hypothyr oidism 53816057 Active 2017 Suly banks [facility] 8 14:47:09 Gastroes ophageal reflux disease 123823585 Active 2017 Suly banks [facility] 8 14:47:16 Chronic obstruct ida pulmonar y disease 89808367 Active 2017 Emphysema /bronchit is? vs ILD (baseline spo2 96% Suly banks [facility] 8 14:48:16 Hypercho lesterol emia 61126973 Active 2017 Suly banks [facility] 8 14:48:32 Acute systolic heart failure 701357563 Active 2023 KESHAV FRAZIER [address] [place], [address], [facility] 4 10:13:41 Depressi ve disorder 23895259 Active 2023 KESHAV FRAZIER [address] [place] [address], [address], [facility] 4 14:18:39 Congesti ve heart failure 80613065 Active 2023 KESHAV FRAZIER [address] [place] [address], [address], [facility] 4 14:26:57 Pneumoni a 316616500 Active 2023 KESHAV FRAZIER [address] [place] [address], [address], [facility] 4 11:08:42 Pleural effusion associat ed with pulmonar y infectio n 30902660 Active 2023 KESHAV FRAZIER [address] [place] [address], [address], [facility] 4 09:18:36 Tobacco dependen ce syndrome 27195684 Active 2023 KEHSAV FRAZIER [address] [place] [address], [address], [facility] 4 09:19:20 Mixed hyperlip idemia 614469146 Active 2024 KESHAV FRAZIER [address] [place] [address], [address], [facility] 5 15:59:18 Aortic valve stenosis 93929006 Active 2017 mild-mode rate per TTE 02/2018 JORGE Persaud [address] [place] [address], [address], [facility] 8 16:08:44 Aortic valve regurgit ation 89476660 Active 2017 mild to moderate per TTE 02/21 JORGE Persaud [address] [place] [address], [address], [facility] 8 16:08:37 Mitral valve regurgit ation 84968587 Active 2017 mild per echo 02/2018 BEVERLY Persaud [address] [place], [address], [facility] 8 16:08:24 Pulmonar y hyperten tiffany 51730577 Active 2017 mild per TTE 02/2018 [facility] [address], [address], [facility] 8 16:30:59 [facility] hyperten tiffany 88285591 Active 2017 [facility] [address], [address], [facility] 8 15:45:00 Problem Notes None recorded. Procedures Surgical History Date Name Laterality Status Provider Name and Address Organization Details Recorded Time 2 Vasectomy completed KESHAV FRAZIER [address] [place], [address], [facility] 03/24/2023 10:45:30 Imaging Results None recorded. Procedure Notes None recorded. Medical Equipment None [...] Available Vitals Date Recorded Body height Body weight Body mass index (BMI) Heart rate Oxygen saturation Oxygen saturation in Arterial blood by Pulse oximetry Systolic blood pressure Diastolic blood pressure Provider Name and Address Organization Details Last Updated DateTime 5 165.1 cm 01962.9 3 g 29.5 kg/m2 65 /min 94 % 94 % 116 mm[Hg] 64 mm[Hg] Ada Mcdaniel MD [facility] 15:34:23 Social History Question Answer Notes LastModified by Organizat ion Details LastModified Time Tobacco Smoking Status Former Smoker [facility] 09/10/2024 14:33:16 Do You Have [...] Or The Highest Degree You Have Received? [id number] Information not available 03/24/2023 How Many Days [...] How Much Tobacco Do You Smoke? No [email or web address] Information not available 09/10/2024 Do You Feel Stressed (tense, Restless, Nervous, Or Anxious, Or Unable To Sleep At Night)? [id number] Information not available 03/24/2023 Do You Use Any Illicit Or Recreational Drugs? No Information not available 03/24/2023 Do You Use Sunscreen Routinely? No Information not available 03/24/2023 How Many Years Have You Smoked Tobacco? 50 [id number] Information not available 09/08/2020 Do You Or [...] History Condition Response Coronary Artery Disease N Other N Gout N Blood Diseases N Kidney Stones N Breast Cancer N Blood Transfusion N Lung Disease N Depression N COPD [...] Time Td (adult) 6 completed Rhiannon banks [facility] 05/05/2021 09:01:03 Influenza, split virus, quadrivalent, preservative 8 completed Rosa M banks [facility] 03/24/2023 10:04:38 zoster live 6 completed February JORGE Persaud [address] [place] [address], [address], [facility] 09/12/2018 15:44:35 COVID-19 vaccine, vector-nr, rS-Ad26, PF, 0.5 mL 1 completed Rosa M banks [facility] 03/24/2023 10:04:38 COVID-19 vaccine, vector-nr, rS-Ad26, PF, 0.5 mL 1 completed Rosa M banks [facility] 03/24/2023 10:04:38 Past Encounters Encounter ID Performer Location Encounter Start Date Encounter Closed Date Diagnosis/Indication Diagnosis SNOMED-CT Code Diagnosis ICD10 Code Diagnosis Note [id number] Esteban Graff [facility] [address] [place] [address],[place] [address] 03/07/2025 15:26:36 03/07/2025 16:18:53 Aortic valve stenosis 79934023 I35.0 stable Asthma 782964093 J45.20 stable Chronic ob structive pulmonary disease 72776517 J41.1 94% on RAbreathin g is good today in office Congestive heart failure 89504730 I50.21 stable Depressive disorder 3548 9007 F33.0 negative Hyperthyroidism 95899086 E05.80 needs f/u blood work Hypothyroidism 95171504 E03.8 medication > takes meds monday, monday, monday, and is when he takes it does not take it monday, monday, monday per endostable with recent check Erectile dysfunction 860 712767 F52.21 will trial tadalafil Pulmonary hypertension 84456161 I27.0 needs repeat US echo Mixed hyperlipidemia 267 314993 E78.2 will recheck lab work Health Concerns Section Related Observation LastModified by Organization Detai ls LastModified Time None Recorded Concern Status LastModified by Organization Details LastModified Time None Recorded Payers Encounter Date Sequence Insurance Name Policy Number Policy Stiles Covered Member ID Stiles Member ID Guarantor Name 03/07/2025 1 [employer]: MERA CHISHOLM (PPO) [id number] Silvino Morse [id number] Silvino Morse Notes Date Note Type Note Provider Name a nd Address Organization Details Recorded Time 03/07/2025 text/html medication f/u aortic valve stenosis: stable, needs f.u with cardio or US echo COPD: stable per patient, baseline o2 sat asthma: stable hypothyroidism: needs lab workto recheck numbers, no major changes to his meds or dosing ED: stable on medication otherwise doing well, stable recommended f/u US echo since he doesn't follow up regularly with cardio KESHAV FRAZIER [address] [place] [address], [address], [facility] 03/07/2025 16:01:14
[2025-03-10 06:30] LABS: MANUAL DIFF FLAG NO
[2025-03-10 07:34] LABS: Estimated Average Glucose 114 mg/dL; Hemoglobin A1C 135.5779 umol/L; Hemoglobin A1c % 5.6 % (<6.0); Total Hemoglobin (HGBA1C) 3610.3556 umol/L
[2025-03-10 07:39] LABS: Basophils Percent Auto 0.4 % (0-2); Eosinophils Absolute Auto 0.2 X10*3/uL (0.0-0.4); Hematocrit 41.4 % (42.0-52.0); Hemoglobin 14.2 g/dl (14.0-18.0); Imm Gran Abs Auto 0.03 X10*3/uL (0.00-0.03); Imm Gran Pct Auto 0.3 % (0.0-0.4); Lymphocytes Absolute Auto 1.7 X10*3/uL (1.2-4.9); Mean Corpuscular HGB Conc 34.3 g/dl (31.0-36.0); Mean Corpuscular Hemoglobin 30.7 pg (27.0-33.0); Mean Corpuscular Volume 89.6 fL (80.0-98.0); Mean Platelet Volume 12.2 fL (9.4-12.4); Monocytes Absolute Auto 0.8 X10*3/uL (0.1-1.2); Monocytes Percent Auto 8.4 % (2-11); Neutrophils Absolute Auto 6.6 x10*3/uL (2.0-8.3); Neutrophils Percent Auto 70.9 % (45-73); Platelet Count 202 X10*3/uL (160-400); Red Blood Count 4.62 X10*6/uL (4.60-5.80); Red Cell Distribution Width 13.2 % (11.0-16.0); White Blood Count 9.4 X10*3/uL (4.8-10.8)
[2025-03-10 07:54] LABS: Alanine Aminotransferase 15 U/L (0-40); Albumin Level 3.9 g/dL (3.5-5.0); Alkaline Phosphatase 92 U/L (39-117); Anion Gap 12 (12-20); Aspartate Amino Transferase 24 U/L (5-37); Bilirubin Total 0.5 mg/dL (0.0-1.0); Blood Urea Nitrogen 17 mg/dL (9-16); Calcium 9.1 mg/dL (8.4-10.2); Carbon Dioxide 24 mmol/L (22-29); Chloride 108 mmol/L (96-108); Cholesterol 135 mg/dL (<200); Estimated Glomerular Filt Rate > 60; Glucose Random 106 mg/dL (60-115); HDL Cholesterol 52 mg/dL (>40); LDL Cholesterol Calculated 70 mg/dL (<100); Potassium 4.3 mmol/L (3.3-5.1); Sodium 140 mmol/L (135-145); Total Protein 6.9 g/dL (6.5-8.0); Triglycerides 65 mg/dL (<150)
[2025-03-10 08:08] LABS: Free T4 (Free Thyroxine) 1.05 ng/dL (0.71-1.85); Thyroid Stimulating Hormone 2.71 uIU/mL (0.32-4.0)
== END 2025-03-10 06:09 | disposition home or self-care (01) ==
LOC: HO.LAB 06:08
PROVIDERS: PCP Internal Medicine; Visit Provider Physician Assistant
DX: I50.21 Acute systolic (congestive) heart failure (principal); E05.80 Other thyrotoxicosis without thyrotoxic crisis or storm; E78.2 Mixed hyperlipidemia; Z13.1 Encounter for screening for diabetes mellitus
CPT/HCPCS: 36415; 80053; 80061; 83036; 84439; 84443; 85025